=== PATIENT | female | born 1980 | race Caucasian/White ===

== ENCOUNTER 2018-06-08 13:16 | Day surgery (SDC) | payer BC ==
[2018-06-08] VITALS (9 sets, daily range): BP systolic 108–139; BP diastolic 68–77
[~2018-06-08] VITALS: Ht 157.5 cm; Wt 69.6 kg
[2018-06-08] MEDS ORDERED: iohexol 350MG/ML 100ml bottle IV ONE (13:52)
[2018-06-08] MEDS ORDERED: LIDOcaine 1% (10mg/ml)w/preservative injection 20ml MDV ONE (13:52)
[2018-06-08] MEDS ORDERED: iohexol 350 MG/ML 50ML vial IV ONE (13:52)
[2018-06-08] MEDS ORDERED: ROSU20TA PO (13:58)
[2018-06-08] MEDS ORDERED: OLME1TAB24 PO (13:58)
[2018-06-08] MEDS ORDERED: ASPI-611 PO (13:58)
[2018-06-08] MEDS ORDERED: diphenhydrAMINE 25mg capsule PO PRN (14:00)
[2018-06-08] MEDS ORDERED: sod bicarbonate 150mEq in D5W 1,150 ML IV ONE (14:00)
[2018-06-08] MEDS ORDERED: normal saline 1000ml 1,000 ML IV SCH (14:00)
[2018-06-08 14:01] LABS: BASOPHILS % (AUTO) 0.5 % (0-1); EOSINOPHILS % (AUTO) 0.7 % (0-6); HEMATOCRIT 42.8 % (35.0-45.0); LYMPHOCYTES # (AUTO) 2.4 X10'3 (1.1-4.8); LYMPHOCYTES % (AUTO) 46.1 % (21-51); MEAN CORPUSCULAR HEMOGLOBIN 30.1 PG (27.0-31.0); MEAN CORPUSCULAR HGB CONC 32.8 % (33.0-36.5); MEAN CORPUSCULAR VOLUME 91.7 FL (78-98); MEAN PLATELET VOLUME 8.3 FL (7.4-10.4); MONOCYTES # (AUTO) 0.3 X10'3 (0-0.9); NEUTROPHILS # (AUTO) 2.2 X10'3 (1.8-7.7); NEUTROPHILS % (AUTO) 45.7 % (42-75); PLATELET COUNT 310 X10'3 (140-440); RED BLOOD COUNT 4.66 X10'6 (4.20-5.60); RED CELL DISTRIBUTION WIDTH 12.3 % (11.5-14.5); WHITE BLOOD COUNT 4.9 X10'3 (4.5-11.0)
[2018-06-08 14:10] LABS: ALBUMIN 4.5 G/DL (3.4-5.0); ANION GAP 13 (8-16); BLOOD UREA NITROGEN 11 MG/DL (7-18); BUN/CREATININE RATIO 15.9 (6.6-38.0); CALCIUM 9.3 MG/DL (8.5-10.1); CHLORIDE 100 MMOL/L (99-107); CREATININE 0.69 MG/DL (0.40-0.90); GLUCOSE 83 MG/DL (70-104); POTASSIUM 3.3 MMOL/L (3.5-5.1); SODIUM 140 MMOL/L (135-145); TOTAL CARBON DIOXIDE 27.4 MMOL/L (24-32); eGFR > 90 ML/MIN
[2018-06-08] MEDS ORDERED: verapamil 2.5 mg/ml inj IV ONE (14:11)
[2018-06-08] MEDS ORDERED: nitroGLYCERIN-Tridil 50MG/D5W 250 ML IV ONE (14:11)
[2018-06-08] MEDS ORDERED: heparin 1,000unit/ml 10ml vial 10 ML ONE (14:11)
[2018-06-08 14:24] LABS: INR 0.9 INR; PROTHROMBIN TIME 9.4 SECONDS (9.0-12.0)
[2018-06-08] MEDS ORDERED: midazolam 2 mg/2 ml injection ONE ×3 (14:26→14:46)
[2018-06-08] MEDS ORDERED: fentaNYL/PF 50MCG/1 ML 2ML syringe ONE ×2 (14:26→14:43)
== END 2018-06-08 18:30 | disposition home or self-care (01) ==
LOC: SSTAY O 13:16
PROVIDERS: ATTEND Internal Medicine Cardiovascular Disease
DX: I20.8 Other forms of angina pectoris (principal); I44.7 Left bundle-branch block, unspecified; I10 Essential (primary) hypertension; E78.5 Hyperlipidemia, unspecified; G47.33 Obstructive sleep apnea (adult) (pediatric); G45.3 Amaurosis fugax; Z72.89 Other problems related to lifestyle; Z90.49 Acquired absence of other specified parts of digestive tract; Z98.51 Tubal ligation status; Z79.82 Long term (current) use of aspirin; Z79.899 Other long term (current) drug therapy; Z98.890 Other specified postprocedural states; Z82.49 Family history of ischemic heart disease and other diseases of the circulatory system
CPT/HCPCS: 36415; 80048; 83735; 85025; 85610; 93005; 93458; 99152; 99153; J1644; J2001; J2250; J3010; J7030; Q9967; A4620; C1769; C1894; J3490